=== PATIENT | male | born 1980 | race Two or more races ===

== ENCOUNTER 2021-04-13 16:34 | Emergency (ER) | payer OTHER ==
--- NOTE | 2021-04-13 16:54 | EDM.PDOC ---
ED HPI GENERAL MEDICAL PROBLEM - General Chief Complaint: Upper Extremity Injury/Pain Stated Complaint: PUNCTURE WOUND TO THUMB Time Seen by Provider: 04/13/21 16:43 Source of Information: Reports: Patient, Family (co worker whom acts ), Interpre ter (co worker) History Limitations: Reports: Language Barrier ( he does not speak setswana --) - History of Present Illness INITIAL COMMENTS - FREE TEXT/NARRATIVE: 40-year-old male presents to the ED with an obvious puncture wound to the volar aspect of his left thumb. Apparent injury occurred around 1300 hrs. today when somehow a 22 shell that is being used to propel nails through wooden into concrete went off and essentially shot him in the volar aspect of the left thumb. He continued working and did finally attend the occupational health clinic on [facility] in [place]. They referred him to the emergency department but it seemed to be quite a while between them calling us that the patient was coming in the patient arrival like 2 hours. The patient himself does not speak any Maori and his coworker acted as his patient experience coordinator and had a very good understanding of Maori language. No other injuries are evident. A pparently tetanus toxoid was updated at the occupational health clinic this afternoon. Pain in his left thumb is constant and throbbing and rated currently as a 6-7 out of 10. Of note the patient is right-hand dominant Onset: Today, Sudden Onset Date: 04/13/21 Onset Time: 13:00 Duration: Hour(s):, Getting Worse Location: Reports: Upper Extremity, Left (Left volar thumb) Quality: Reports: Ache, Throbbing Severity: Moderate (6-7 out of 10) Improves with: Reports: Other (Olding and up in the air helps some.) Worsens with: Reports: Movement Context: Reports: Trauma (See history of present illness). Denies: Activity, Exercise, Lifting, Sick Contact Associated Symptoms: Reports: No Other Symptoms Treatments CHAR BELT OPERATOR: Reports: Other (see below) (None.) Left Hand Pain Score (Numeric/FACES): 3 - Related Data Allergies Allergy/AdvReac Type Severity Reaction Status Date / Time No Known Allergies Allergy Verified 04/13/21 16:45 Home Meds: Home Meds Doxycycline [Vibra-Tabs] 100 mg PO Q12HR #28 tab 04/13/21 [Rx] oxyCODONE HCl/Acetaminophen [Percocet 5-325 mg Tablet] 1 - 2 each PO Q4H PRN #20 tablet 04/13/21 [Rx] Past Medical History - Past Health History Medical/Surgical History: Denies Medical/Surgical History Social & Family History - Tobacco Use Tobacco Use Status *Q: Never Tobacco User Second Hand Smoke Exposure: No - Caffeine Use Caffeine Use: Reports: Coffee - Recreational Drug Use Recreational Drug Use: No - Living Situation & Occupation Living situation: Reports: Occupation: Employed Review of Systems - Review of Systems Review Of Systems: See Below Constitutional: Reports: No Symptoms Eyes: Reports: No Symptoms Ears: Reports: No Symptoms Nose: Reports: No Symptoms Mouth/Throat: Reports: No Symptoms Respiratory: Reports: No Symptoms Cardiovascular: Reports: No Symptoms GI/Abdominal: Reports: No Symptoms Genitourinary: Reports: No Symptoms Musculoskeletal: Reports: Back Pain, Joint Pain (Remittent knees hips) Skin: Reports: No Symptoms ( times) Neurological: Reports: No Symptoms Psychiatric: Reports: No Symptoms ED EXAM, GENERAL - Physical Exam Exam: See Below Exam Limited By: No Limitations General Appearance: Alert, WD/WN, Mild Distress, Other (Very stoic fellow. Temperature is 36.7 degrees. Heart rate 71 and sinus respiratory is 18 with O2 sats of 97% room air BP 128/71) Eye Exam: Bilateral Eye: Normal Inspection, PERRL Extremities: Normal Range of Motion (At the interphalangeal joint of the thumb. No through and through wound.), Other (Examination of injured left volar thumb reveals a circular wound just distal to the interphalangeal joint . Patient has full ability to flex his thumb although it is painful at the interphalangeal joint. There is soft tissue protruding from the wound. It is approximately 4 to 5 mm in diameter com) Psychiatric: Flat Affect Skin Exam: Warm, Dry, Normal Color, No Rash Course - Vital Signs Last Recorded V/S: Last Vital Signs Temp 36.3 C 04/13/21 18:45 Pulse 64 04/13/21 18:45 Resp 18 04/13/21 18:45 BP 124/77 04/13/21 18:45 Pulse Ox 96 04/13/21 18:45 - Orders/Labs/Meds Orders: Active Orders 24 hr Category Date Time Status Fingers Thumb Lt FA [CR] Stat Exams 04/13/21 16:50 Taken Meds: Medications Discontinued Medications Generic Name Dose Route Start Last Admin Trade Name Luis Antonio PRN Reason Stop Dose Admin Amoxicillin/Clavulanate Potassium 1 tab 04/13/21 17:21 04/13/21 17:28 Amoxicillin/Clavulanate K 875-125 Mg Tab PO 04/13/21 17:22 1 tab ONETIME ONE Administration Ibuprofen 600 mg 04/13/21 17:22 04/13/21 17:28 Ibuprofen 600 Mg Tab PO 04/13/21 17:23 600 mg ONETIME ONE Administration Oxycodone/Acetaminophen 1 tab 04/13/21 17:23 04/13/21 17:29 Acetaminophen/Oxycodone 325-5 Mg Tab PO 04/13/21 17:24 1 tab ONETIME ONE Administration - Radiology Interpretation Free Text/Narrative:: 40-year-old male of German sent who does not speak Maori and history was obtained through his coworker who acts as his patient experience coordinator. Is unclear how this accident happened but it did happen in the workplace approximate 1300 hrs. today. The use a 22 shell and a tool that is used to anchor nails through wood and into concrete. Essentially the 22 shell ask as a firing mechanism. It is unclear how he was shot accidentally in the volar aspect of his thumb by the 22 shell as usually the mechanism of this tool is to push it up against a flat hard surface before it will fire. It appears that the wound occurred fairly close to his thumb. Patient first attended the occupational health clinic here in [place] where he did receive tetanus update. He was referred to the ED due to the nature of his injury. On examination he has a puncture wound approximately 4 to 5 mm in diameter the size of a 22 caliber shell just distal to the interphalangeal joint volar surface of the thumb. There is no through and through wound. Patient had some ability to flex his thumb at the IP joint but it was very painful. Plan x-rays of the thumb will be obtained. The wound will be soaked in 10% Betadine solution for 10 minutes. It will require some debridement. - Re-Assessments/Exams Free Text/Narrative Re-Assessment/Exam: 04/13/21 17:35: X-rays of the left thumb reveal a comminuted fracture of the base of the volar distal phalanx and the superior volar surface of the proximal phalanx involving the intraphalangeal joint. The fragments are fairly well opposed and in anatomical position and in my opinion would not benefit from surgery. The wound was irrigated with 10% Betadine solution. 04/13/21 19:35: I was called away from this patient by trauma and a cardiac arrest in the department. His wound was debrided of fatty tissue and then wound was dressed by nursing staff with topical antibiotic Xeroform and then a tube gauze dressing with an aluminum splint placed dorsally for the next 2 days. He is to leave this initial dressing in place for 48 hours and then he is to daily cleanse the wound with soap and water and apply topical antibiotic such as bacitracin or Polysporin to the wound and cover with a circumferential bandage. He is then to wear the volar aluminum splint to protect the fractured areas and tape it in place for the next 5 to 6 weeks. I placed him on doxycycline 100 mg twice daily for the next 14 days to prevent secondary wound infection since this is an open fracture. Pain medicine will be Percocet 5/325 mg strength 1 or 2 every 4-6 hours as needed for pain relief. With Motrin 600 mg every 6 hours as needed. Advise follow-up in the occupational health clinic within the next 2 weeks. He may return to work of work duties are available with no use of his left hand for the next 6 weeks. He is to return immediately to medical care if any signs of infection occur such as redness, swelling or obvious pus. Departure - Departure Time of Disposition: 18:58 Disposition: Home, Self-Care 01 Condition: Fair Clinical Impression: Puncture wound of thumb, left, complicated Qualifiers: Encounter type: initial encounter Qualified Code(s): S61.032A - Puncture wound without foreign body of left thumb without damage to nail, initial encounter Open fracture of left thumb Qualifiers: Encounter type: initial encounter Phalanx: distal Fracture alignment: displaced Qualified Code(s): S62.522B - Displaced fracture of distal phalanx of left thumb, initial encounter for open fracture - Discharge Information *PRESCRIPTION DRUG MONITORING PROGRAM REVIEWED*: Not Applicable *COPY OF PRESCRIPTION DRUG MONITORING REPORT IN PATIENT REINALDO: Not Applicable Prescriptions: oxyCODONE HCl/Acetaminophen [Percocet 5-325 mg Tablet] 1 - 2 each PO Q4H PRN #20 tablet PRN Reason: pain relief. Doxycycline [Vibra-Tabs] 100 mg PO Q12HR #28 tab Instructions: Puncture Wound, [id number], Thumb Fracture Referrals: PCP,None [Primary Care Provider] - Forms: ED Department Discharge Additional Instructions: Evaluation in the emergency room today in regards to a puncture wound to the volar aspect of the left thumb that occurred in the workplace around 1300 hrs. today. The puncture wound was accidental from discharge of a 22 shell cartridge that is used to shoot nails through wooden into concrete to anchor a wall. Therefore there was a tremendous amount of force at very close proximity to his volar thumb. The puncture wound is about the size of a 22 shell 4 to 5 mm in diameter and is over the volar mid thumb. X-rays revealed a comminuted fracture of the lower portion of the distal phalanx and the upper portion of the proximal phalanx. There is joint space injury. The wound was cleansed in the emergency room and debrided of fatty tissue. Initial splint applied and antibiotic application to the wound. Initial antibiotic was given in the ED and tetanus toxoid was updated at the occupational health clinic. Treatment is to leave the initial dressing in place for the next 2 days. In the wound is to be cleansed daily with soap and water. Showering is okay. Then apply topical antibiotic such as bacitracin or Polysporin to the wound and cover with a bandage to keep clean until the wound heals which will take that would proximately 2 weeks. Apply aluminum splint after applying a bandage and tape in place. The splint will have to be in place for at least 4 to 6 weeks to allow the bones to heal. Suggest follow-up in the occupational health clinic in 2 weeks time and then as directed after that until the bones have healed. The risk is that there will be permanent damage to the joint with development of arthritis in that joint over the next 10 to 15 years. You will need to take antibiotic orally doxycycline 100 mg by mouth twice daily for the next 2 weeks to prevent secondary bone infection. May use Motrin 600 mg with 1 Percocet 5/325 mg tablet every 6 hours as needed for pain relief for the next 3 to 4 days and then as needed. Pain is usually significant for the first 3 days after injury. May return to work if alternative work duties are available where he would not have to use the left hand at all for the next 6 weeks. Evaluacin en la reyna de emergencias hoy en relacin a naresh herida por puncin en la braxton volar del pulgar dameon que ocurri en el lugar de trabajo alrededor de las 1300 hrs. hoy michael. La herida por puncin fue accidental por la descarga de un cartucho de 22 proyectiles que se usa para disparar clavos a travs de huang en concreto para anclar naresh pared. Por lo tanto, hubo naresh enorme cantidad de fuerza muy cerca de herrera pulgar volar. La herida de la puncin tiene aproximadamente el tamao de naresh kiran de 22 de 4 a 5 mm de dimetro y se encuentra sobre el pulgar medio palmar. Las radiografas revelaron naresh fractura conminuta de la porcin inferior de la falange distal y la porcin superior de la falange proximal. Hay lesin del espacio articular. La herida fue limpiada en la reyna de emergencias y desbridada de tejido graso. Frula inicial aplicada y aplicacin de antibiticos en la herida. Se administr antibitico inicial en el servicio de urgencias y se actualiz el toxoide tetnico en la clnica de shiva ocupacional. El tratamiento consiste en dejar el apsito inicial en herrera lugar bart los prximos 2 ko. En la herida se debe limpiar a diario con agua y jabn. Ducharse est bebo. Luego aplique un antibitico tpico anahi bacitracina o Polysporin a la herida y cbralo con un vendaje para mantenerlo limpio hasta que la herida sane, lo que alisson aproximadamente 2 semanas. Aplique naresh frula de aluminio despus de aplicar un vendaje y colocar cinta adhesiva en herrera lugar. La frula tendr que estar colocada bart al menos 4 a 6 semanas para permitir que los huesos sanen. Sugiera un seguimiento en la clnica de shiva ocupacional en 2 semanas y luego segn las indicaciones hasta que los huesos hayan sanado. El riesgo es que haya un blake permanente en la articulacin con el desarrollo de artritis en chris articulacin bart los prximos 10 a 15 aos. Deber alisson antibitico de doxiciclina 100 mg por va oral dos veces al da bart las prximas 2 semanas para prevenir naresh infeccin sea secundaria. Puede usar Motrin 600 mg con 1 tableta de Percocet 5/325 mg cada 6 horas segn sea necesario para aliviar el dolor bart los prximos 3 a 4 ko y luego segn sea necesario. El dolor suele ser significativo bart los primeros 3 ko despus de la lesin. Puede regresar al trabajo si hay tareas de trabajo alternativas disponibles en las que no tendra que usar la mano izquierda en absoluto bart las prximas 6 semanas. Sepsis Event Note (ED) - Focused Exam Vital Signs: Vital Signs Temp Pulse Resp BP Pulse Ox 04/13/21 18:45 36.3 C 64 18 124/77 96 04/13/21 16:43 36.7 C 71 18 128/71 97 - My Orders Last 24 Hours: My Active Orders 04/13/21 16:50 Fingers Thumb Lt FA [CR] Stat - Assessment/Plan Last 24 Hours: My Active Orders 04/13/21 16:50 Fingers Thumb Lt FA [CR] Stat
[2021-04-13] MEDS ORDERED: Amoxicillin/Clavulanate K 875-125 MG Tab PO ONE (17:21)
[2021-04-13] MEDS ORDERED: Ibuprofen 600 MG Tab PO ONE (17:22)
[2021-04-13] MEDS ORDERED: Acetaminophen/oxyCODONE 325-5 MG Tab PO ONE (17:23)
--- NOTE | 2021-04-14 07:36 | CR ---
Left thumb: 3 views of the left thumb were obtained. Comparison: No prior left hand or finger study is available. Comminuted fracture is identified within the corner base of the distal phalanx with articular extension. Additional fracture is seen within the distal corner of the proximal phalanx with articular extension. Soft tissue swelling is noted. No proximal bony abnormality is seen. Impression: 1. Fractures involving the IP joint of the left thumb as noted above. 2. Soft tissue swelling. Diagnostic code #3
== END 2021-04-13 19:20 | disposition home or self-care (01) ==
LOC: JD.ED 16:34
DX: S62.522B Displaced fracture of distal phalanx of left thumb, initial encounter for open fracture (principal); W26.8XXA Contact with other sharp object(s), not elsewhere classified, initial encounter
CPT/HCPCS: 73140; 99283; A9270